=== PATIENT | female | born 1945 | race Caucasian/White ===

== ENCOUNTER → 2020-09-05 | Outpatient (CLI) | payer MEDICARE, OTHER ==
[~2020-09-05] MED LIST: ALPR.25 PO; AMLO5 PO; ASCO500 PO; ASPI81CH PO; GLUC500 PO; LORA.5 PO; LOSHYD PO; LOVA20 PO; LOVA40 PO; MECL25 PO; MULVITMIND PO; OLME20-12. PO; VITAMIN D5000 UNI1 PO
== END | disposition home or self-care (01) ==
LOC: LAB SHORT 10:34 → PLD 10:34
DX: C43.61 Malignant melanoma of right upper limb, including shoulder (principal)
CPT/HCPCS: 88305

== ENCOUNTER 2020-09-23 10:04 | Day surgery (SDC) | payer OTHER ==
[~2020-09-23] VITALS: Ht 167.6 cm; Wt 78.3 kg
--- NOTE | 2020-09-23 12:49 | NUR ---
09/23/[address] SPOKE W/ PT AT 12:49
--- NOTE | 2020-09-23 14:00 | NUR ---
09/23/[address] SX START 1326- END 1400.
== END 2020-09-23 16:32 | disposition home or self-care (01) ==
LOC: ORSCSDS 10:04 → NM 11:00 → ORSCSDS 16:32
PROVIDERS: Orthopaedic Surgery
PROC: 0X6L0Z1 Detachment at Right Thumb, High, Open Approach (ICD-10-PCS; principal; 2020-09-23 13:00)
PROC: 07B50ZX Excision of Right Axillary Lymphatic, Open Approach, Diagnostic (ICD-10-PCS; principal; 2020-09-23 13:00)
DX: C43.9 Malignant melanoma of skin, unspecified (principal); D36.0 Benign neoplasm of lymph nodes; I10 Essential (primary) hypertension; E78.5 Hyperlipidemia, unspecified; Z79.899 Other long term (current) drug therapy; Z79.82 Long term (current) use of aspirin
CPT/HCPCS: 78195; 88305; 88307; 88341; 88342; A9270; A9520; J0690; J2001; J2250; J2704; J3010; J7120

== ENCOUNTER → 2021-05-12 | Outpatient (CLI) | payer OTHER ==
[2021-05-12 18:25] LABS: Source, Urine Clean Catch
[2021-05-12 19:17] LABS: Appearance, Urine Clear (Clear); Bilirubin, Urine Neg (Neg); Blood, Urine 3+ (Neg); Color, Urine Yellow (P-Yellow); Glucose Qualitative, Urine Neg (Neg); Ketones, Urine Neg (Neg); Leukocyte Esterase, Urine 3+ (Neg); Nitrite, Urine Pos (Neg); Protein, Urine 1+ (Neg); Urobilinogen, Urine NORM (Normal)
[2021-05-12 19:41] LABS: Bacteria Many /hpf; Squamous Epithelial Cells Few /hpf (Few)
== END | disposition home or self-care (01) ==
LOC: LAB SHORT 18:23 → LAB 18:23
PROVIDERS: Obstetrics & Gynecology
DX: R30.9 Painful micturition, unspecified (principal)
CPT/HCPCS: 81001; 87077; 87086; 87186

== ENCOUNTER → 2021-06-02 | Outpatient (CLI) | payer OTHER ==
[2021-06-02 13:34] LABS: Source, Urine Voided
[2021-06-02 15:22] LABS: Appearance, Urine Clear (Clear); Bilirubin, Urine Neg (Neg); Blood, Urine Neg (Neg); Color, Urine Yellow (P-Yellow); Glucose Qualitative, Urine Neg (Neg); Ketones, Urine Neg (Neg); Leukocyte Esterase, Urine 2+ (Neg); Nitrite, Urine Neg (Neg); Protein, Urine Neg (Neg); Specific Gravity, Urine 1.015 (1.003-1.022); Urobilinogen, Urine NORM (Normal)
[2021-06-02 15:56] LABS: Bacteria Few /hpf; Squamous Epithelial Cells Rare /hpf (Few)
== END | disposition home or self-care (01) ==
LOC: LAB SHORT 13:33
PROVIDERS: Obstetrics & Gynecology
DX: R30.9 Painful micturition, unspecified (principal)
CPT/HCPCS: 81001; 87077; 87086; 87186

== ENCOUNTER → 2021-06-13 | Outpatient (CLI) | payer OTHER | END | disposition home or self-care (01) | LOC: LAB SHORT 10:56 | DX: N39.0 Urinary tract infection, site not specified (principal) | CPT/HCPCS: 87086 ==